=== PATIENT | female | born 1995 | race Two or more races ===

== ENCOUNTER 2017-03-28 18:16 | Emergency (ER) | payer MEDICAID ==
[~2017-03-28] VITALS: Ht 152.4 cm; Wt 54.4 kg
[2017-03-28] MEDS ORDERED: ACETAMINOPHEN 325 MG TABLET PO ONE (18:30)
[2017-03-28] MEDS ORDERED: ACETAMINOPHEN 325 MG TABLET ONE (18:36)
--- NOTE | 2017-03-28 18:44 | NUR ---
RECEIVED REPORT FROM CATHERINE OLIVEIRA FOR JUSTIN. URINE COLLECTED. SENT TO LAB.
--- NOTE | 2017-03-28 18:58 | NUR ---
PT TO RADIOLOGY FOR CT.
--- NOTE | 2017-03-28 19:24 | NUR ---
PT RETURNED FROM CT.
--- NOTE | 2017-03-28 19:46 | NUR ---
CALLED [facility], SPOKE TO SONU, XRAYS TO BE READ NEXT
--- NOTE | 2017-03-28 19:54 | NUR ---
Patient discharged to home in stable condition. Written and verbal after care instructions given. Patient verbalizes understanding of instruction. ambulatory with a steady gait. instructed not to drive. pt verbalize. understanding. accompanied by family
[2017-03-28 19:55] VITALS: BP 118/76
== END 2017-03-28 19:57 | disposition home or self-care (01) ==
LOC: ER 18:24
DX: M54.9 Dorsalgia, unspecified (principal); V43.52XA Car driver injured in collision with other type car in traffic accident, initial encounter; Y92.89 Other specified places as the place of occurrence of the external cause; Y93.89 Activity, other specified; Y92.410 Unspecified street and highway as the place of occurrence of the external cause; Y99.9 Unspecified external cause status
CPT/HCPCS: 72074; 72110; 84703; 99284; A4606; Z7610